=== PATIENT | male | born 1990 | race Caucasian/White ===

== ENCOUNTER 2017-06-24 14:25 | Emergency (ER) | payer SELFPAY ==
[~2017-06-24] VITALS: Ht 177.8 cm; Wt 65.9 kg
[2017-06-24 14:25] VITALS: BP 130/76
--- NOTE | 2017-06-24 16:32 | REP ---
SCROTAL ULTRASOUND: Real-time sonographic evaluation of the scrotum and contents performed. Testicles are normal in size and echotexture, right testicle measuring 4.2 x 2.2 x 2.1 cm and left testicle 4.1 x 1.7 x 2.6 cm. There is no testicular mass. There are multiple tiny calcifications bilaterally, more so on the left than on the right. There is no mass or torsion with blood flow seen in each testicle with duplex Doppler evaluation, RI right testicle 0.61 and left testicle 0.55. Cyst in the head of the left epididymis measures 7 mm in diameter. Large left inguinal hernia contains fat. There are also dilated venous structures in the left scrotum compatible with a left-sided varicocele. IMPRESSION: Testicular microlithiasis. Recommend yearly followup ultrasound as patients with microlithiasis are at increased risk for neoplasm. No testicular torsion. Large left inguinal hernia contains fat. Left varicocele. Signed by Thierry Garcia MD 06/25/2017 08:44 A
[2017-06-24] MEDS ORDERED: IBUP-1022 PO (17:38)
--- NOTE | 2017-07-02 13:54 | ED PDOC ---
Post-Departure Follow-Up dr zapata faxed formal report of scrotal us for fu.Peri Balbuena MD Jul 02, 2017 13:54
== END 2017-06-24 18:03 | disposition home or self-care (01) ==
LOC: M ED 14:25
DX: K40.90 Unilateral inguinal hernia, without obstruction or gangrene, not specified as recurrent (principal); I86.1 Scrotal varices; N50.89 Other specified disorders of the male genital organs; F17.200 Nicotine dependence, unspecified, uncomplicated

== ENCOUNTER 2017-08-13 06:57 | Day surgery (SDC) | payer SELFPAY ==
[~2017-08-13] VITALS: Ht 177.8 cm; Wt 65.8 kg
[~2017-08-13 06:57] MED LIST: IBUP-1022 PO
[2017-08-13] MEDS ORDERED: ceFAZolin SOD 1 GM in D5W MINI-BAG PLUS 50 ML IV ONE (07:00)
[2017-08-13] MEDS ORDERED: LR 1,000 ML IV SCH ×3 (07:00→10:45)
[2017-08-13] MEDS ORDERED: BUPIVACAINE/EPIN 0.25% 30 ML VIAL As Ordered ONE ×2 (08:08→08:47)
[2017-08-13] MEDS ORDERED: fentaNYL 100 MCG/2 ML INJECTION (J3010) As Ordered ONE (08:46)
[2017-08-13] MEDS ORDERED: PROPOFOL 200 MG/20 ML VIAL As Ordered ONE (08:46)
[2017-08-13] MEDS ORDERED: LIDOCAINE 2% INJ 100 MG/5 ML SDV (FOR ANES.) As Ordered ONE (08:46)
[2017-08-13] MEDS ORDERED: MIDAZOLAM INJ 2 MG/2 ML VIAL (J2250) As Ordered ONE (08:46)
[2017-08-13] MEDS ORDERED: ROCURONIUM BROMIDE 50 MG/5 ML VIAL/SYRINGE As Ordered ONE ×2 (08:46→09:08)
[2017-08-13] MEDS ORDERED: METOCLOPRAMIDE INJ 10MG/2ML VIAL (J2765) As Ordered ONE (08:47)
[2017-08-13] MEDS ORDERED: ONDANSETRON 4MG/2ML VIAL (J2405) As Ordered ONE (08:47)
[2017-08-13] MEDS ORDERED: KETOROLAC 60 MG/2 ML VIAL (J1885) As Ordered ONE (08:47)
[2017-08-13] MEDS ORDERED: NEOSTIGMINE 10 MG/10 ML VIAL (J2710) As Ordered ONE (08:52)
[2017-08-13] MEDS ORDERED: GLYCOPYRROLATE INJ 0.2 MG/ML 2 ML VIAL As Ordered ONE ×2 (08:52→08:53)
[2017-08-13] MEDS ORDERED: fentaNYL 100 MCG/2 ML INJECTION (J3010) IV PRN (10:45)
[2017-08-13] MEDS ORDERED: MORPHINE 4 MG/ML 1ML SYRINGE IV PRN (10:45)
[2017-08-13] MEDS ORDERED: METOCLOPRAMIDE INJ 10MG/2ML VIAL (J2765) IV PRN (10:45)
[2017-08-13] MEDS ORDERED: NORCO, ANEXSIA 5/325MG TABLET (HYDROcodone/ACETAMINOPHEN) PO PRN (10:45)
[2017-08-13] MEDS ORDERED: ONDANSETRON 4MG/2ML VIAL (J2405) IV PRN ×2 (10:45)
[2017-08-13] MEDS ORDERED: MEPERIDINE INJ 25 MG/ML VIAL (J2175) IV PRN (10:45)
[2017-08-13] MEDS: PERCOCET 5MG/325MG TAB PO PRN ×2 (10:49→13:30)
[2017-08-13 13:25] VITALS: BP 143/77
[2017-08-13] MEDS ORDERED: PERCOCET 5MG/325MG TAB As Ordered ONE (13:29)
[2017-08-13] MEDS ORDERED: KETOROLAC 30 MG/ML VIAL (J1885) IV SCH (15:00)
--- NOTE | 2017-08-29 21:19 | RO ---
DATE OF PROCEDURE: 08/13/2017 PREOPERATIVE DIAGNOSIS: Left inguinal hernia. POSTOPERATIVE DIAGNOSIS: Left inguinal hernia. OPERATIVE PROCEDURE: Laparoscopic left inguinal hernia repair with 3-D Max mesh. SURGEON: Merlin Cristina MD [employer]: ANESTHESIA: General endotracheal anesthesia. ESTIMATED BLOOD LOSS: Minimal. FLUIDS: Crystalloid. BRIEF PROCEDURE SUMMARY: The patient was brought to the operating room and was given general anesthesia. After adequate anesthesia and preoperative antibiotics were given the patient was prepped and draped in the usual sterile fashion. Next, a left a periumbilical incision was made with a skin knife. Blunt dissection was carried down to fascia. Fascia was incised longitudinally with electrocautery and the rectus muscle was retracted anteriorly. Posterior rectus sheath was followed posteriorly with the finger dissection then a balloon dissector was placed in the preperitoneal space above the pubis and insufflated under direct visualization. The stationary balloon was placed in the preperitoneal space, insufflated under direct visualization. Next, two 5 mm trocars were placed along the inferior umbilicus area and under direct visualization, the left inguinal area was dissected out first taking down loose areolar tissue on the posterior aspect of pubis as well as on the Will's ligament and then working lateral to medial towards the internal ring, taking down the peritoneum. Eventually at this time the hernia sac to be well visualized, was dissected off the surrounding tissue and off the cord structures and eventually after mobilizing this off the cord structures to where the vas dove deep into the pelvis, a good valley between the bladder and the vessels was created using some minimal blunt dissection. A 3-D Max mesh was placed in the preperitoneal space and tacked in on pubis, lateral border of Will's and then on the tail of the mesh as well. It was somewhat redundant anteriorly. Thus an AbsorbaTack was also placed anteriorly on the rectus muscle. The area was clean and dry. Operative field was clean and dry and the preperitoneal space was desufflated under direct visualization. Trocars were removed under direct visualization and all incisions were closed with #4-0 Vicryl after the umbilical site was closed with #0 Vicryl in the fascial layer. Steri-Strips and dry sterile dressing was applied. The patient was awakened from his anesthesia, extubated and brought to the recovery room awake, alert, and hemodynamically stable. Sponge and needle counts correct times two.
== END 2017-08-13 13:38 | disposition home or self-care (01) ==
LOC: M SDC 06:57
PROVIDERS: ATTEND Surgery
DX: K40.90 Unilateral inguinal hernia, without obstruction or gangrene, not specified as recurrent (principal); F17.210 Nicotine dependence, cigarettes, uncomplicated
CPT/HCPCS: 49650; A6024; C1781; J0690; J1885; J2250; J2405; J2710; J2765; J3010

== ENCOUNTER → 2020-09-12 | Outpatient (REF) | payer BC ==
[2020-09-12 14:41] LABS: SEMEN APPEARANCE OPAQUE (OPAQUE)
[2020-09-12 14:42] LABS: SEMEN VISCOSITY LIQUID (LIQUID); SEMEN VOLUME 2.5 ML (2.0-5.0); SEMEN WBC >1 M/ml (<=1 M/ml)
== END ==
LOC: M SFHCCLAY 14:31
PROVIDERS: ATTEND Nurse Practitioner Family
DX: Z31.41 Encounter for fertility testing (principal)

== ENCOUNTER → 2020-09-19 | Outpatient (REF) | payer BC ==
[2020-09-20 12:15] LABS: ALBUMIN 4.3 GM/DL (3.2-5.2); ALT/SGPT 27 U/L (12-78); BILIRUBIN,TOTAL 0.5 MG/DL (0.2-1.0); BLOOD UREA NITROGEN 13 MG/DL (7-18); CALCIUM LEVEL 9.3 MG/DL (8.5-10.1); CARBON DIOXIDE LEVEL 28 MEQ/L (21-32); CHLORIDE LEVEL 103 MEQ/L (98-107); CREATININE FOR GFR 0.89 MG/DL (0.70-1.30); FOLLICLE STIMULATING HORMONE 18.9 mIU/mL (1.4-18.1); GLOMERULAR FILTRATION RATE > 60.0 (>60); GLUCOSE, FASTING 79 MG/DL (70-100); LUTEINIZING HORMONE 10.6 mIU/mL (1.5-9.3); POTASSIUM SERUM 5.3 MEQ/L (3.5-5.1); PROLACTIN 8.8 NG/ML (2.1-17.7); SODIUM LEVEL 137 MEQ/L (136-145); TOTAL PROTEIN 7.4 GM/DL (6.4-8.2)
[2020-09-21 16:29] LABS: TESTOSTERONE FREE (DIRECT) 10.5 pg/mL (9.3-26.5)
== END ==
LOC: M SFHCCLAY 15:23
PROVIDERS: ATTEND Nurse Practitioner Family
DX: N46.01 Organic azoospermia (principal)

== ENCOUNTER → 2021-01-30 | Outpatient (REF) | payer BC ==
[2021-01-31 13:02] LABS: FREE T4 1.19 NG/DL (0.76-1.46); FREE THYROXINE INDEX 3.6 % (1.4-3.8); THYROID PEROXIDASE ANTIBODY 30.6 U/ML (<60.0); THYROID STIMULATING HORMONE 0.844 uIU/ML (0.358-3.740); THYROXINE (T4) 10.3 UG/DL (4.5-12.0)
== END ==
LOC: M SFHCCLAY 15:22
PROVIDERS: ATTEND Nurse Practitioner Family
DX: R79.89 Other specified abnormal findings of blood chemistry (principal)

== ENCOUNTER → 2021-12-04 | Outpatient (CLI) | payer BC | LOC: M SLEEP HO 11:18 | PROVIDERS: ATTEND Physician Assistant | DX: G47.33 Obstructive sleep apnea (adult) (pediatric) (principal) ==

== ENCOUNTER → 2022-10-15 | Outpatient (REF) | payer BC ==
[2022-10-15 11:39] LABS: BASO % 0.4 % (0.0-1.0); EOS # 0.2 10^3/uL (0.0-0.5); EOS % 3.5 % (0.0-3.0); HEMATOCRIT 47.3 % (42.0-52.0); HEMOGLOBIN 16.5 g/dl (13.5-17.5); LYMPH # 1.9 10^3/uL (1.5-5.0); LYMPH % 34.1 % (24.0-44.0); MEAN CORPUSCULAR HEMOGLOBIN 33.3 pg (27.0-33.0); MEAN CORPUSCULAR HGB CONC 34.9 g/dl (32.0-36.5); MEAN CORPUSCULAR VOLUME 95.4 fl (80.0-96.0); MONO # 0.7 10^3/uL (0.0-0.8); MONO % 12.2 % (2.0-8.0); NEUTROPHILS # 2.7 10^3/uL (1.5-8.5); NEUTROPHILS % 49.4 % (36.0-66.0); PLATELET COUNT, AUTOMATED 191 10^3/uL (150-450); RED BLOOD COUNT 4.96 10^6/uL (4.30-6.10); WHITE BLOOD COUNT 5.5 10^3/uL (4.0-10.0)
[2022-10-15 12:26] LABS: CHLORIDE LEVEL 102 MMOL/L (98-107); SODIUM LEVEL 140 MMOL/L (136-145)
[2022-10-15 12:27] LABS: ALBUMIN 4.2 G/DL (3.2-5.2); CARBON DIOXIDE LEVEL 28 MMOL/L (20-31)
[2022-10-15 12:31] LABS: BLOOD UREA NITROGEN 13 MG/DL (9-23); GLUCOSE, FASTING 97 MG/DL (60-100); TRIGLYCERIDES LEVEL 71 MG/DL (<150)
[2022-10-15 12:32] LABS: CALCIUM LEVEL 9.1 MG/DL (8.5-10.1)
[2022-10-15 12:33] LABS: ALKALINE PHOSPHATASE 64 U/L (46-116)
[2022-10-15 12:34] LABS: ALT/SGPT 31 U/L (7.0-40); AST/SGOT 25 U/L (<34); BILIRUBIN,TOTAL 0.9 MG/DL (0.3-1.2); CHOLESTEROL LEVEL 239 MG/DL (<200); CHOLESTEROL RISK RATIO 2.74 (<5); CREATININE FOR GFR 0.76 MG/DL (0.70-1.30); GLOMERULAR FILTRATION RATE > 60.0 (>60); LDL CHOLESTEROL 137.8 MG/DL (<100); NON-HDL-C 152 MG/DL; TOTAL PROTEIN 7.2 G/DL (5.7-8.2)
[2022-10-15 12:38] LABS: FREE T4 1.49 NG/DL (0.89-1.76); THYROID STIMULATING HORMONE 0.968 uIU/ML (0.55-4.78)
[2022-10-15 12:41] LABS: POTASSIUM SERUM 4.6 MMOL/L (3.5-5.1)
== END ==
LOC: M SFHCCLAY 07:44
PROVIDERS: ATTEND Nurse Practitioner Family
DX: L30.9 Dermatitis, unspecified (principal); R19.4 Change in bowel habit; Z82.3 Family history of stroke

== ENCOUNTER → 2023-11-13 | Outpatient (CLI) | payer BC | LOC: M WUC 10:57 | PROVIDERS: ATTEND Internal Medicine | DX: K21.9 Gastro-esophageal reflux disease without esophagitis (principal); R10.9 Unspecified abdominal pain; R19.7 Diarrhea, unspecified; R14.3 Flatulence ==

== ENCOUNTER → 2024-12-14 | Outpatient (REF) | payer BC ==
[2024-12-14 13:15] LABS: BASO % 0.5 % (0.0-1.0); EOS # 0.1 10^3/uL (0.0-0.5); EOS % 2.4 % (0.0-3.0); HEMATOCRIT 43.1 % (42.0-52.0); HEMOGLOBIN 15.7 g/dl (13.5-17.5); LYMPH # 1.9 10^3/uL (1.5-5.0); LYMPH % 44.9 % (24.0-44.0); MEAN CORPUSCULAR HEMOGLOBIN 34.8 pg (27.0-33.0); MEAN CORPUSCULAR HGB CONC 36.4 g/dl (32.0-36.5); MEAN CORPUSCULAR VOLUME 95.6 fl (80.0-96.0); MONO # 0.5 10^3/uL (0.0-0.8); MONO % 11.8 % (2.0-8.0); NEUTROPHILS # 1.7 10^3/uL (1.5-8.5); NEUTROPHILS % 40.2 % (36.0-66.0); PLATELET COUNT, AUTOMATED 178 10^3/uL (150-450); RED BLOOD COUNT 4.51 10^6/uL (4.30-6.10); WHITE BLOOD COUNT 4.3 10^3/uL (4.0-10.0)
[2024-12-14 13:35] LABS: FREE T4 1.87 NG/DL (0.89-1.76); THYROID STIMULATING HORMONE 0.754 uIU/ML (0.55-4.78)
[2024-12-14 13:36] LABS: ALBUMIN 3.8 G/DL (3.2-5.2); ALKALINE PHOSPHATASE 56 U/L (40-129); ALT/SGPT 45 U/L (7.0-40); AST/SGOT 35 U/L (<34); BILIRUBIN,TOTAL 0.6 MG/DL (0.3-1.2); BLOOD UREA NITROGEN 10 MG/DL (9-23); CALCIUM LEVEL 8.8 MG/DL (8.5-10.1); CARBON DIOXIDE LEVEL 24 MMOL/L (20-31); CHLORIDE LEVEL 108 MMOL/L (98-107); CHOLESTEROL LEVEL 249 MG/DL (<200); CHOLESTEROL RISK RATIO 3.53 (<5); CREATININE FOR GFR 0.78 MG/DL (0.70-1.30); GLOMERULAR FILTRATION RATE > 60.0 (>60); GLUCOSE, FASTING 100 MG/DL (60-100); HDL CHOLESTEROL 70.5 MG/DL (>40); LDL CHOLESTEROL 103.5 MG/DL (<100); NON-HDL-C 178.5 MG/DL; SODIUM LEVEL 141 MMOL/L (136-145); TRIGLYCERIDES LEVEL 375 MG/DL (<150)
== END ==
LOC: M SFHCCLAY 08:29
PROVIDERS: ATTEND Nurse Practitioner Family
DX: L30.9 Dermatitis, unspecified (principal); R19.4 Change in bowel habit; Z82.3 Family history of stroke